=== PATIENT | male | born 1985 | race African-American/Black ===

== ENCOUNTER 2018-10-17 03:25 | Emergency (ER) | payer SELFPAY ==
[~2018-10-17] VITALS: Ht 177.8 cm; Wt 63.6 kg
[2018-10-17 03:36] VITALS: BP 107/83
--- NOTE | 2018-10-17 14:45 | REP ---
RIGHT HAND COMPLETE: 10/17/2018. Clinical history trauma, swelling 2nd MCP joint. Findings: No prior studies. Four views are provided. Distal radius and ulna are grossly intact. There is a pair of smooth ossific densities seen on the oblique views only and these are not associated with significant swelling. I suspect they represent old avulsions or accessory ossicle. The distal radius and ulnar carpal bones, metacarpals and phalanges without fracture. There are changes of swelling at the first MCP and dorsal aspect over the hand of the MCP as well. Impression: 1. Two small ossific densities adjacent to the triquetrum with very smooth regular margins, likely old avulsion injury. Swelling about the first MCP joint as well as other MCPs on the lateral view. Electronically Signed by Basim Ron MD 10/17/2018 08:41 P
== END 2018-10-17 06:27 | disposition home or self-care (01) ==
LOC: M ED 03:25
DX: M79.641 Pain in right hand (principal)

== ENCOUNTER 2018-11-19 03:38 | Emergency (ER) | payer SELFPAY ==
[~2018-11-19] VITALS: Ht 177.8 cm; Wt 68.2 kg
[2018-11-19 03:39] VITALS: BP 127/66
[2018-11-19] MEDS ORDERED: METAL LOCK LOOP XX ONE (10:02)
== END 2018-11-19 04:34 | disposition left against medical advice (07) ==
LOC: M ED 03:38
DX: Z53.21 Procedure and treatment not carried out due to patient leaving prior to being seen by health care provider (principal)

== ENCOUNTER 2024-04-21 12:14 | Emergency (ER) | payer SELFPAY ==
[~2024-04-21] VITALS: Ht 172.7 cm; Wt 60.5 kg
[2024-04-21 12:17] VITALS: TEMP 97.8
[2024-04-21] MEDS ORDERED: AMOX875T2 (12:40)
[2024-04-21 16:15] VITALS: BP 121/63; O2SAT 100
== END 2024-04-21 16:18 | disposition left against medical advice (07) ==
LOC: M ED 12:14
DX: Z53.21 Procedure and treatment not carried out due to patient leaving prior to being seen by health care provider (principal)

== ENCOUNTER 2024-04-29 22:14 | Emergency (ER) | payer SELFPAY ==
[~2024-04-29] VITALS: Ht 172.7 cm; Wt 61.4 kg
[~2024-04-29 22:14] MED LIST: AMOX875T2
[2024-04-29] MEDS ORDERED: ISOVUE-370 76% 100ML VIAL As Ordered ONE (22:50)
[2024-04-29 22:53] LABS: BASO % 0.4 % (0.0-1.0); EOS % 0.6 % (0.0-3.0); HEMOGLOBIN 14.7 g/dl (13.5-17.5); LYMPH # 1.5 10^3/uL (1.5-5.0); LYMPH % 21.4 % (24.0-44.0); MEAN CORPUSCULAR HEMOGLOBIN 33.6 pg (27.0-33.0); MEAN CORPUSCULAR HGB CONC 34.2 g/dl (32.0-36.5); MEAN CORPUSCULAR VOLUME 98.4 fl (80.0-96.0); MONO # 0.2 10^3/uL (0.0-0.8); MONO % 2.9 % (2.0-8.0); NEUTROPHILS # 5.1 10^3/uL (1.5-8.5); NEUTROPHILS % 74.6 % (36.0-66.0); PLATELET COUNT, AUTOMATED 235 10^3/uL (150-450); RED BLOOD COUNT 4.37 10^6/uL (4.30-6.10); WHITE BLOOD COUNT 6.8 10^3/uL (4.0-10.0)
[2024-04-29 23:10] LABS: VENOUS BASE EXCESS -1.9 (-2.0-2.0); VENOUS HCO3 23.5 MMOL/L (23.0-27.0); VENOUS O2 SATURATION 94.5 % (60.0-80.0); VENOUS PH 7.365 UNITS (7.330-7.430); VENOUS STANDARD HCO3 22.9 MMOL/L; VENOUS TOTAL CO2 24.8 MMOL/L (24.0-28.0)
[2024-04-29] MEDS: ACETAMINOPHEN *IV* 1,000 MG in IV 1 EA IV ONE (23:22)
[2024-04-29 23:25] LABS: ETHYL ALCOHOL (ETHANOL) 0.204 % (0.000-0.010); LIPASE 33 U/L (12-53)
[2024-04-29 23:27] LABS: INR 1.1; PARTIAL THROMBOPLASTIN TIME 28.7 SECONDS (24.8-34.2); PROTHROMBIN TIME 14.6 SECONDS (12.5-14.5)
[2024-04-29 23:27] LABS: ALKALINE PHOSPHATASE 74 U/L (40-129); ALT/SGPT 18 U/L (7.0-40); AMYLASE 207 U/L (30-118); AST/SGOT 29 U/L (<34); BILIRUBIN,DIRECT 0.2 MG/DL (<0.4); BILIRUBIN,TOTAL 0.4 MG/DL (0.3-1.2); BLOOD UREA NITROGEN 13 MG/DL (9-23); CALCIUM LEVEL 9.1 MG/DL (8.5-10.1); CARBON DIOXIDE LEVEL 29 MMOL/L (20-31); CHLORIDE LEVEL 106 MMOL/L (98-107); CK-MB VALUE MASS 1.6 NG/ML (<3.6); CREATININE FOR GFR 1.07 MG/DL (0.70-1.30); GLOMERULAR FILTRATION RATE > 60.0 (>60); GLUCOSE, FASTING 88 MG/DL (60-100); POTASSIUM SERUM 3.7 MMOL/L (3.5-5.1); SODIUM LEVEL 145 MMOL/L (136-145); TOTAL PROTEIN 7.6 G/DL (5.7-8.2)
[2024-04-29 23:28] LABS: CPK CREATINE PHOSPHOKINASE 380 U/L (46-171); MB/CK RELATIVE INDEX 0.42 (< OR =4)
[2024-04-30] MEDS: NS (Normal Saline) 0.9% 1,000 ML IV ONE (00:15)
[2024-04-30] MEDS: KETOROLAC 30 MG/ML 1ML VIAL IV ONE (02:57)
[2024-04-30 03:37] LABS: APPEARANCE, URINE CLEAR (CLEAR); BACTERIA, URINE AUTO NEGATIVE (NEGATIVE); BILIRUBIN, URINE AUTO NEGATIVE (NEGATIVE); BLOOD, URINE BLOOD NEGATIVE (NEGATIVE); COLOR, URINE YELLOW (YELLOW); GLUCOSE, URINE (UA) AUTO NEGATIVE (NEGATIVE); KETONE, URINE AUTO NEGATIVE (NEGATIVE); LEUKOCYTE ESTERASE, URINE AUTO NEGATIVE (NEGATIVE); NITRITE, URINE AUTO NEGATIVE (NEGATIVE); PROTEIN, URINE AUTO NEGATIVE (NEGATIVE); RBC, URINE AUTO 0 /HPF (0-3); SPECIFIC GRAVITY URINE AUTO 1.056 (1.002-1.035); SQUAMOUS EPITHELIAL CELL UR AU 0 /HPF (0-6); UROBILINOGEN, URINE AUTO 0.2 mg/dL (0.0-2.0); WBC, URINE AUTO 0 /HPF (0-3)
[2024-04-30 04:38] LABS: HEMATOCRIT 38.9 % (42.0-52.0); HEMOGLOBIN 13.2 g/dl (13.5-17.5); MEAN CORPUSCULAR HEMOGLOBIN 33.8 pg (27.0-33.0); MEAN CORPUSCULAR HGB CONC 33.9 g/dl (32.0-36.5); MEAN CORPUSCULAR VOLUME 99.5 fl (80.0-96.0); PLATELET COUNT, AUTOMATED 204 10^3/uL (150-450); RED BLOOD COUNT 3.91 10^6/uL (4.30-6.10); WHITE BLOOD COUNT 8.3 10^3/uL (4.0-10.0)
[2024-04-30 05:00] LABS: AMPHETAMINES LEVEL URINE NEGATIVE (NEGATIVE); BARBITURATES URINE NEGATIVE (NEGATIVE); BENZODIAZEPINES URINE NEGATIVE (NEGATIVE); PHENCYCLIDINE URINE NEGATIVE (NEGATIVE)
[2024-04-30 05:01] LABS: COCAINE METABOLITE URINE NEGATIVE (NEGATIVE); METHADONE URINE NEGATIVE (NEGATIVE); OPIATES URINE NEGATIVE (NEGATIVE)
[2024-04-30 05:03] LABS: CANNABINOIDS URINE POSITIVE (NEGATIVE)
[2024-04-30 05:16] VITALS: O2SAT 98
[2024-04-30 06:00] VITALS: O2SAT 98
[2024-04-30 06:04] VITALS: BP 103/51; TEMP 97.8
== END 2024-04-30 06:16 | disposition home or self-care (01) ==
LOC: M ED 22:14
DX: S02.2XXA Fracture of nasal bones, initial encounter for closed fracture (principal); Y92.410 Unspecified street and highway as the place of occurrence of the external cause; Y93.9 Activity, unspecified; Y99.9 Unspecified external cause status; V03.10XA Pedestrian on foot injured in collision with car, pick-up truck or van in traffic accident, initial encounter; I45.10 Unspecified right bundle-branch block
CPT/HCPCS: 70450; 70486; 71045; 71260; 72125; 72128; 72131; 74177; 80047; 80048; 80076; 80307; 81001; 82077; 82150; 82550; 82553; 82803; 83605; 83690; 84484; 85025; 85027; 85610; 85730; 86850; 86900; 86901; 93005; 94760; 96365; 96366; 96375; 99285; J0131; J1885; Q9967